=== PATIENT | male | born 1965 | race Caucasian/White ===

== ENCOUNTER 2021-08-09 18:48 | Emergency (ER) | payer BC ==
[~2021-08-09] VITALS: Ht 177.8 cm; Wt 136.8 kg
[2021-08-09 21:07] VITALS: BP 138/74
== END 2021-08-09 22:50 | disposition home or self-care (01) ==
LOC: M ED 18:48
DX: R55 Syncope and collapse (principal); R79.1 Abnormal coagulation profile
CPT/HCPCS: 70450; 71045; 71275; 80048; 81001; 82077; 82550; 82553; 83735; 84439; 84443; 84484; 85025; 85379; 85610; 93005; 93041; 94760; 96360; 96361; 99285; Q9967